=== PATIENT | female | born 1980 | race Hispanic/Latino ===

== ENCOUNTER 2019-03-16 15:28 | Emergency (ER) | payer SELFPAY ==
[2019-03-16] MEDS ORDERED: ALBUTEROL SULFATE 0.083% 2.5 MG/3 ML INH IH ONE (16:00)
[2019-03-16] MEDS ORDERED: DEXAMETHASONE SOD PHOSPHATE 10MG/ML 1ML VIAL ONE (16:07)
[2019-03-16] MEDS ORDERED: GUAIFENESIN-DM 200/20 MG 10 ML ONE (16:07)
== END 2019-03-16 17:24 | disposition home or self-care (01) ==
LOC: EDH 15:28
DX: J20.9 Acute bronchitis, unspecified (principal); Z90.49 Acquired absence of other specified parts of digestive tract; Z90.710 Acquired absence of both cervix and uterus
CPT/HCPCS: 71046; 96372; 99284; J1100; 94640